=== PATIENT | female | born 2000 | race American Indian/Alaskan Native ===

== ENCOUNTER 2020-06-29 11:22 | Emergency (ER) | payer SELFPAY ==
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
[2020-06-29] MEDS ORDERED: ACETAMINOPHEN 500 MG TAB PO ONE (16:38)
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
== END 2020-06-29 17:54 | disposition home or self-care (01) ==
LOC: ED 11:22
DX: S01.81XA Laceration without foreign body of other part of head, initial encounter (principal); Z79.899 Other long term (current) drug therapy; Y04.8XXA Assault by other bodily force, initial encounter; Y93.89 Activity, other specified; Y92.89 Other specified places as the place of occurrence of the external cause; Y99.8 Other external cause status
CPT/HCPCS: 70450; 70486; 99283